=== PATIENT | male | born 1945 | race African-American/Black ===

== ENCOUNTER 2019-06-27 06:58 | Inpatient (IN) | payer OTHER ==
[~2019-06-27] VITALS: Ht 175.3 cm; Wt 72.6 kg
[2019-06-27 07:02] VITALS: Ht 175.3 cm; Wt 72.6 kg
--- NOTE | 2019-06-27 07:11 | NUR ---
DR ALONZO AT BEDSIDE FOR MSE. PT RUBEN FROM [facility] CODE 3 FOR INCR ALOC. PER MEDIC STAFF AT THE [facility] MEDICAL [place] SAID PT IS MORE CONFUSED THAN USUAL. PT'S BASELINE IN [facility] 14 DUE TO LIVER ISSUES PER MEDIC WHO STATED STAFF INFORMED HIM OF THIS. MEDIC REPORTS THE STAFF ALSO STATED PT IS USUALLY ON A MEDICAL BED WITH RAILS UP BUT HE WAS FOUND ON GROUND THIS MORNING. PT AWAKE AND CONFUSED TO FIRST NAME AND SITUATION. PT IS ONLY ABLE TO STATE HIS LAST NAME. PT FOLLOWS SIMPLE COMMANDS SUCH WIGGLE TOE, TURN HEAD.
--- NOTE | 2019-06-27 07:21 | NUR ---
MSE COMPLETED BY DR ALONZO.
--- NOTE | 2019-06-27 08:00 | NUR ---
PT REMAINS AWAKE BUT CONFUSED. REPORT GIVEN TO JAC.
[2019-06-27 08:04] LABS: CHLORIDE SERUM 113 mmol/L (98-107); CREATININE SERUM 1.1 mg/dL (0.7-1.3); GLUCOSE SERUM 77 mg/dL (74-106); POTASSIUM SERUM 4.7 mmol/L (3.5-5.1); SODIUM SERUM 140 mmol/L (136-145)
[2019-06-27 08:08] LABS: BASOPHIL % 0.4 % (0-2); PLATELET COUNT 158 x10^3mcL (130-400)
[2019-06-27 08:12] LABS: RED CELL DISTRIBUTION WIDTH 17.6 % (11.5-14.5)
[2019-06-27 08:18] LABS: ALKALINE PHOSPHATASE 112 U/L (46-116); ALT/SGPT 46 U/L (16-63); AST/SGOT 60 U/L (15-37); BILIRUBIN TOTAL 2.9 mg/dL (0.20-1.00); TOTAL PROTEIN, SERUM 7.2 g/dL (6.4-8.2)
[2019-06-27 08:20] LABS: ALBUMIN 1.4 g/dL (3.4-5.0)
[2019-06-27 08:29] LABS: microscopic required? YES; urine erythrocyte TRACE (NEGATIVE)
--- NOTE | 2019-06-27 09:31 | NUR ---
AWAKE DISORIENTED TO DATE TIME AND PLACE,KNOWS HIS NAME, CUPOLA TENDER IN SR, RESP. EASY, BLOOD DRAWN FOR AMONIA LEVEL
--- NOTE | 2019-06-27 10:32 | NUR ---
PT USED URINAL BUT NEEDED MINIMAL ASSISTANCE WITH HOLDING URINAL TO PENIS.
[2019-06-27] MEDS ORDERED: PROSCAR5 MG PO (10:55)
[2019-06-27] MEDS ORDERED: LACTULOSE10 GM/152 PO (10:55)
[2019-06-27] MEDS ORDERED: FLO4 PO (10:56)
[2019-06-27] MEDS ORDERED: XALATAN2.5 ML OU (10:56)
--- NOTE | 2019-06-27 11:47 | NUR ---
I CALLED REPORT TO DEVIN SHE WILL BE CARING FOR PT WHEN HE GOES TO [id number]
--- NOTE | 2019-06-27 12:03 | NUR ---
RECEIVED PT FROM ER NURSE VIA ALIX, PT LYING IN BED DENIES PAIN, PT 98% RA LUNGS CTA BILAT, A&O X2 WITH EPISODES OF CONFUSION AND SLOWED RESPONSE AND SPEECH, PT ON TELE 15 DENIES ANY CHEST PAIN AT THIS TIME. NO EDEMA NOTED CAP REFILL <3SEC. SECURITY AT BEDSIDE. BED IN LOW POSITION CALL LIGHT WITHIN REACH. WILL CONTINUE TO MONITOR. IV PATENT AND INTACT ON R WRIST NO EDEMA OR REDNESS NOTED.
--- NOTE | 2019-06-27 13:11 | NUR ---
PT AMMONIA LEVEL 49 PT MEDICATED WITH LACTULOSE. PT TOLERATED WELL NO ADVERSE REACTIONS NOTED. WILL CONTINUE TO MONITOR.
--- NOTE | 2019-06-27 15:18 | NUR ---
PT MEDICATED WITH VIT K SUB Q PER DR JOHNS ORDER. PT TOLERATED WELL. NO ADVERSE REACTIONS NOTED WILL CONTINUE TO MONITOR.
[2019-06-27 16:05] VITALS: BP 118/72
[2019-06-27 17:00] VITALS: BP 125/74
--- NOTE | 2019-06-27 17:30 | NUR ---
MARTIN FOUND IN PT CHART TO BE DNR. SPOKE WITH DR ASHLEY REGUARDING CHANGING CODE STATUS PER DR ASHLEY OK INPUT TELEPHONE ORDER CHANGE FROM FULL CODE TO DNR. ORDER READ BACK CONFIRMED AND FOLLOWED THROUGH.
--- NOTE | 2019-06-27 17:50 | NUR ---
FULL LIQUID DIET PT TOLERATED WELL. NO DISTRESS NOTED. CALL LIGHT WITHIN REACH ALL CONCERNS ADDRESSED. WILL CONTINUE TO MONITOR.
--- NOTE | 2019-06-27 18:21 | NUR ---
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 PICTURE TAKEN AND DOCUMENTED. ALL NEEDS ATTENDED TO. WILL CONTINUE TO MONITOR.
--- NOTE | 2019-06-27 19:15 | NUR ---
ENDORSED CARE TO SHIPPING PACKER NURSE PATIENT LYING IN BED AWAKE, IV PATENT INFUSING AND INTACT, PT DENIES PAIN AT THIS TIME. ALL NEEDS ATTENDED TO. SAFETY PRECAUTIONS IN PLACE. SPECIAL EDUCATION PROFESSOR AT BEDSIDE.
--- NOTE | 2019-06-27 19:59 | NUR ---
RECEIVED PATIENT IN BED AWAKE CONFUSED WITH NO SIGN OF ACUTE DISTRESS, BREATHING EASY AND NONLABOR SATTING AT 100% RA. TELE#15 NSR WITH BBB AND PAC ON MONITOR, NO INDICATION OF CHEST DISCOMFORT NOTED. ABDOMEN ROUND AND NONTENDER WITH ACTIVE BS.PATIENT HAD LOOSE STOOL, PATIENT ON LACTULOSE FOR HIGH LEVEL OF AMMNOIA. IV TO RW INTACT AND INFUSING WELL. WILL CONTINUE TO MONITOR. [facility] OFFICERS AT BEDSIDE.
[2019-06-27 20:51] VITALS: BP 111/56
--- NOTE | 2019-06-27 23:03 | NUR ---
ASSISTED TO BATHROOM PATIENT USES WALKER ,HAD BM LOOSE AFTER LACTULOSE WAS GIVEN.
--- NOTE | 2019-06-28 00:04 | NUR ---
APPEAR TO BE SLEEPING AT THIS TIME, BREATHING EASYA ND NONLABOR. [facility] OFFICERS AT BEDSIDE.
--- NOTE | 2019-06-28 05:11 | NUR ---
SLEPT AT LONG INTERVALS,NO INDICATION OFPAINA ND DISCOMFORT NOTED THE ENTIRE SHIFT. ALL NEEDS ATTENDED.
[2019-06-28 05:37] VITALS: BP 117/50
--- NOTE | 2019-06-28 07:45 | NUR ---
RECEIVED PT IN BED. ASSESSED AND DOCUMENTED. DENIES ANY PAIN. STABLE. GAURDS AT BEDSIDE. SAFTEY PRECAUTIONS ARE IN PLACE. WILL MONITOR.
[2019-06-28 08:47] VITALS: BP 111/65
[2019-06-28 12:25] VITALS: BP 119/65
--- NOTE | 2019-06-28 13:00 | NUR ---
PT RESTING IN BED COMFORTABLY. DENIES ANY PAIN. TOLERATED FULL LIQUID DIET WELL. STABLE.
[2019-06-28 16:36] VITALS: BP 140/65
--- NOTE | 2019-06-28 17:10 | NUR ---
CAME TO SEE PT. SPOKE WITH PT. INFORMED ABOUT PT HAS BEEN REFUSING LACTULOSE PO. PT IS STABLE. SLEEPING THIS TIME.
--- NOTE | 2019-06-28 19:02 | NUR ---
PT RESTING IN BED COMFORTABLY. DENIES ANY PAIN. GAURDS AT BEDSIDE. STABLE. GAVE REPORT TO FEDERAL AID COORDINATOR NURSE.
--- NOTE | 2019-06-28 19:36 | NUR ---
RECEIVED PATIEN TIN BED SLEEPING WITH NO INDICATION OF DISTRESS, BREATHING EASY AND NONLABOR. TELE# 15 NSR WITH BBB,PAC ON MONITOR. NO INDICATION OF CHEST DISCOMFORT NOTED. ABDOMEN ROUND AND NONTENDER WITH ACTIVE BS. IV TO RIGHT WRIST HEPLOCKED, FLUSHED WITH NS. COM OFFICERS AT BEDSIDE. WILL CONTINUE TO MONITOR. CALL LIGHT WITHIN REACH.
[2019-06-28 20:26] VITALS: BP 114/66
--- NOTE | 2019-06-29 01:35 | NUR ---
APPEAR TO BE SLEEPING AT THIS TIME BREATHING EASY AND NONLABOR. WILL CONTINUE TO MONITOR. [facility] OFFICERS AT BEDSIDE.
--- NOTE | 2019-06-29 05:09 | NUR ---
SLEPT AT LONG INTERVALS .DENIES CHEST DISOCMFORT THE ENTIRE SHIFT. ALL NEEDS ATTENDED.
[2019-06-29 05:25] VITALS: BP 107/57
[2019-06-29 07:10] LABS: PLATELET COUNT 132 x10^3mcL (130-400); RED CELL DISTRIBUTION WIDTH 17.5 % (11.5-14.5)
--- NOTE | 2019-06-29 07:20 | NUR ---
RECEIVED PATIENT AWAKE/ALERT, SLOW TO RESPOND, DENIES ANY PAIN, NO DISTRESS NOTED, PATIENT LIKE TO COVER HIS HEAD W/ BLANKET. TELE #15 SR W/ BBB HR 91 NOTED. IV TO RW INTACT AND SL NOTED. 2 GUARDS AT BEDSIDE. LEFT FOOT CUFFED TO BED NOTED, CALL LIGHT WITHIN REACH.
[2019-06-29 08:26] VITALS: BP 102/59
[2019-06-29 08:36] LABS: CARBON DIOXIDE 22.8 mmol/L (21-32); CHLORIDE SERUM 112 mmol/L (98-107); CREATININE SERUM 1.2 mg/dL (0.7-1.3); GLUCOSE SERUM 112 mg/dL (74-106); POTASSIUM SERUM 4.5 mmol/L (3.5-5.1); SODIUM SERUM 140 mmol/L (136-145)
--- NOTE | 2019-06-29 09:29 | NUR ---
PATIENT IN BED ALERT AND ORIENTED. EXPLAINED TO PATIENT THE REASON FOR GIVING LACTULOSE, HOWEVER, PATIENT REFUSED. PATIENT ALSO REFUSED MIRALAX BUT TOOK THE REST OF THE MEDICATIONS. GUARDS AWARE. PATIENT STILL PERSISTENT NOT TO TAKE IT. CALL LIGHT WITHIN REACH. SALINE LOCK PATENT.
--- NOTE | 2019-06-29 09:43 | NUR ---
INFORMED DR. ASHLEY THAT PATIENT REFUSED LACTULOSE AND HIS AMMONIA LEVEL WAS 67.
[2019-06-29 11:47] VITALS: BP 108/56
[2019-06-29 11:49] LABS: BAND NEUTROPHIL 0 % (0-10); BASOPHIL 0 % (0-2); MONOCYTE 9 % (0-7); MYELOCYTE 1 % (0-2); SEGMENTED NEUTROPHILS 55 % (37-75)
[2019-06-29 11:50] LABS: rbc morphology (normal/abnorm) ABNORMAL (NORMAL)
[2019-06-29 11:52] LABS: target cell (codocyte) 2+
[2019-06-29 11:53] LABS: PLATELET MORPHOLOGY PLATELETS NORMAL
--- NOTE | 2019-06-29 12:14 | NUR ---
PATIENT SLEEPING AT THIS TIME, TELE #15 SR, BBB, HR 77; CONT TO MONITOR.
--- NOTE | 2019-06-29 13:36 | NUR ---
Initial Nutrition Assessment: 225T/B TUESDAY, TOMMY IA HR Dx: Hepatic encephalopathy PMHx: GERD, Peptic Ulcer Disease PSHx: none Labs: BUN 21H, Ammonia 67H, AST 60H, HGB 8.4L Meds: cephulac, miralax, phenegran, senokot Diet: Regular PO intake since admission: (06/28) dinner 75%, lunch 100%, breakfast 0% Ht: 175.26 cm (69") Wt: 72.5 kg (160#) BMI: 23.6 kg/m2 Bed scale: 72.6 kg IBW:160# (73 kg) %IBW: 100 UBW: 160# Age: 73/M Food Allergies: NKFA Skin: intact Luis Antonio: 19 Edema: none GI: blood in stool Last BM: 06/27 Per H&P, Pt is a 73 YO male h/o cirrhosis encephalopathy PUD [facility] resident found to be altered during the day. RD Note (06/29): Patient said that he ate most of his breakfast this morning and was asking for Ensure. Spoke with Dr. Avendano, that low sodium, low fat diet would be more beneficial for the patient's condition. Problem with: N/V/D/C: none Problems with: Chewing: Swallowing: none Current appetite: good Recent wt change: none %wt change: n/a Vitamin/Supplement use: none Special diet at home: Regular Physical activity: sedentary Nutrition education given: none at this time Food-drug interactions: none Education given: n/a Estimated Nutritional Needs Based on current body weight (72.5 kg) Energy: 2820-5240 kcal/day (25-35 kcal/kg for hepatic encephalopathy) Protein: 58-72 g/day (0.8-1.0 g/kg for hepatic encephalopathy) Fluid: 7286-0591 mL/day (1 mL/kcal) or per MD Nutrition Diagnosis: 1. Impaired nutrient utilization related to hepatic encephalopathy as evidenced by ammonia 67. Intervention 1. Recommend low sodium, low fat/ cardiac diet. Discussed recommendation with Dr. Avendano. Monitor/Evaluate Goal: PO intake at least 75% of estimated needs Monitor: PO intake, Labs, GI function F/U in 7 days as low risk 07/06
--- NOTE | 2019-06-29 13:36 | NUR ---
1. Recommend low sodium, low fat/ cardiac diet. Discussed recommendation with Dr. Avendano.
--- NOTE | 2019-06-29 13:47 | NUR ---
PATIENT SITTING UP EATING HIS LUNCH. REFUSED HIS MEDICATION.
[2019-06-29 16:17] VITALS: BP 112/73
--- NOTE | 2019-06-29 18:12 | NUR ---
PATIENT AWAKE ALERT , WATCHING TV , NO DISTRESS. IV FLUSHED WELL. STARTED WTIH ROCEPHIN 50ML AT 100ML/H. 2 GUARDS AT BEDSIDE. CALL LIGHT WITHIN REACH.
--- NOTE | 2019-06-29 19:30 | NUR ---
PT RECIEVED FROM DAY NURSE. PT RESTING IN BED AT THIS TIME. IV PULLED OUT AT THIS TIME. PT A/O X2, REORIENTED TO TIME AND PLACE. TELE 15, NSR WITH BBB. DENIES CP, NV, DIZZINESS, AND PALPATATIONS. PALPABLE PULSES, NO EDEMA NOTED. BREATHING E/U ON RA. DENIES SOB. ABD SOFT AND ROUND, DENIES PAIN TO PALPATION. GENERALIZED WEAKNESS, AMBULATES WITH WALKER ASSIST. L BUTTOCK ABRASION, DRUPAL DEVELOPER. BED AT LOWEST POSITION. CALL LIGHT WITHIN REACH. WILL CONTINUE TO MONITOR.
[2019-06-29 21:28] VITALS: BP 110/51
--- NOTE | 2019-06-30 | NUR ---
PT RESTING IN BED AT THIS TIME. NO S/S OF PAIN OR DISCOMFORT NOTED. BREATHING E/U ON RA. NO S/S OF ACUTE DISTRESS AT THIS TIME. BED AT LOWEST POSITION. CALL LIGHT WITHIN REACH. WILL CONTINUE TO MONITOR.
[2019-06-30 05:35] VITALS: BP 103/57
--- NOTE | 2019-06-30 06:08 | NUR ---
PT RESTING IN BED AT THIS TIME. DENIES PAIN OR DISCOMFORT. BREATHING E/U ON RA. NO SIGNS OF ACUTE DISTRESS NOTED AT THIS TIME. ALL NEEDS AND CONCERNS ADDRESSED THIS SHIFT. BED AT LOWEST POSITION. CALL LIGHT WITHIN REACH. WILL ENDORSE TO DAY NURSE.
[2019-06-30 06:39] LABS: BASOPHIL % 0.6 % (0-2)
--- NOTE | 2019-06-30 07:14 | NUR ---
RECEIVED PT FROM TATTOO TECHNICIAN NURSE. PT RESTING IN BED, AOX2, RESP E/U ON RA. NO SIGNS OF ACUTE DISTRESS NOTED AT THIS TIME. ON TELE 15 SHOWING SR W/ BBB, HR: 94. SALINE LOCKED TO R WRIST W. NO ERYTHEMA OR EDEMA. BED IN LOWEST POSITION AND CALL LIGHT WITHIN REACH. CIM GUARD AT BEDSIDE. WILL CONTINUE TO MONITOR.
[2019-06-30 07:26] LABS: PLATELET COUNT 125 x10^3mcL (130-400); RED CELL DISTRIBUTION WIDTH 17.3 % (11.5-14.5)
[2019-06-30 07:37] LABS: CALCIUM 7.7 mg/dL (8.5-10.1); CARBON DIOXIDE 21.4 mmol/L (21-32); CHLORIDE SERUM 112 mmol/L (98-107); CREATININE SERUM 1.1 mg/dL (0.7-1.3); GLUCOSE SERUM 86 mg/dL (74-106); POTASSIUM SERUM 4.4 mmol/L (3.5-5.1); SODIUM SERUM 140 mmol/L (136-145)
[2019-06-30 09:49] VITALS: BP 105/54
[2019-06-30 11:22] VITALS: BP 105/54
--- NOTE | 2019-06-30 12:46 | NUR ---
PT RESTING IN BED, AOX4, RESP E/U ON RA. DENIES HEADACHE, NAUSEA OR PAIN, NO ACUTE DISTRESS NOTED. BED IN LOWEST POSITION AND CALL LIGHT WITHIN REACH. CIM GUARDS AT BEDSIDE. WILL CONTINUE TO MONITOR.
--- NOTE | 2019-06-30 13:40 | NUR ---
TRANSPORT HERE TO COMMISSIONING AGENT PT. PT IS BEING [facility]CHARGE BACK [facility]. IV AND TELE MONITOR REMOVED. NO DISTRESS NOTED. IN STABLE CONDITION FOR DISCHARGE
== END 2019-06-30 14:06 | disposition other institution (70) | DRG 441 ==
LOC: ED 06:58 → DU 10:54
PROVIDERS: Emergency Medicine; Internal Medicine Gastroenterology; ADMIT Internal Medicine
DX: K72.90 Hepatic failure, unspecified without coma (principal); G93.41 Metabolic encephalopathy; D68.9 Coagulation defect, unspecified; K74.60 Unspecified cirrhosis of liver; M19.90 Unspecified osteoarthritis, unspecified site; D64.9 Anemia, unspecified; H40.9 Unspecified glaucoma; K21.9 Gastro-esophageal reflux disease without esophagitis; Z68.23 Body mass index [BMI] 23.0-23.9, adult; Z87.11 Personal history of peptic ulcer disease
CPT/HCPCS: G0378; J0696; J3430; Q0092